=== PATIENT | male | born 1960 | race African-American/Black ===

== ENCOUNTER 2018-08-17 13:13 | Emergency (ER) | payer OTHER, MEDICAID ==
[~2018-08-17] VITALS: Ht 185.4 cm; Wt 95.3 kg
[2018-08-17 13:36] VITALS: BP 130/76
--- NOTE | 2018-08-17 13:59 | RAD ---
Examination: 3 views of the right knee HISTORY: History of right knee pain COMPARISON: None available FINDINGS: Severe joint space loss identified in the medial compartment of the right knee. Large osteophyte formation identified in the medial compartment. Mild sclerosis of the tibial plateau likely degeneration.. Moderate joint space loss identified in the lateral, patellar femoral compartments. Osseous demineralization. Hardware identified in the medial proximal tibial region. IMPRESSION: 1. No acute osseous findings. 2. Severe degenerative changes knee joint, most severe in the medial compartment. Electronically signed by: Max Arauz MD (08/17/2018 1:56 PM) [facility]
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
[2018-08-17] MEDS ORDERED: MELO7.5T5 PO (14:11)
[2018-08-17] MEDS ORDERED: KETOROLAC 60 MG/2 ML INJ. IM ONE (14:45)
== END 2018-08-17 14:28 | disposition home or self-care (01) ==
LOC: ER 13:13
DX: M17.11 Unilateral primary osteoarthritis, right knee (principal); I10 Essential (primary) hypertension; Z98.890 Other specified postprocedural states
CPT/HCPCS: 73562; 96372; 99284; J1885